=== PATIENT | female | born 1955 | race Caucasian/White ===

== ENCOUNTER → 2016-07-11 | Outpatient (CLI) | payer MEDICARE, OTHER | END | disposition home or self-care (01) | LOC: XYW 10:47 | PROVIDERS: ATTEND Internal Medicine Cardiovascular Disease | DX: I34.2 Nonrheumatic mitral (valve) stenosis (principal); I35.1 Nonrheumatic aortic (valve) insufficiency | CPT/HCPCS: 93306 ==

== ENCOUNTER → 2017-04-18 | Outpatient (CLI) | payer MEDICARE, OTHER | END | disposition home or self-care (01) | LOC: LAB 09:25 | PROVIDERS: ATTEND Internal Medicine | DX: Z01.812 Encounter for preprocedural laboratory examination (principal) | CPT/HCPCS: 36415; 84132 ==

== ENCOUNTER → 2019-03-06 | Outpatient (CLI) | payer MEDICARE, OTHER ==
[2019-03-06 10:37] LABS: Basophils # (auto) 0 uL; Basophils % (auto) 1.1 % (0.0-2.0); Eosinophils # (auto) 0.1 uL; Eosinophils % (auto) 4.4 % (0.0-7.0); Hematocrit 40.3 % (36.0-46.0); Hemoglobin 13.4 g/dL (12.2-16.2); Lymphocytes # (auto) 1.3 uL; Lymphocytes % (auto) 42.2 % (10.0-50.0); Mean Corpuscular Hemoglobin 32.2 pg (28.0-32.0); Mean Corpuscular Hgb Conc. 33.4 g/dL (32.0-36.0); Mean Corpuscular Volume 96.5 fL (80.0-100.0); Monocytes # (auto) 0.3 uL; Monocytes % (auto) 9.4 % (0.0-12.0); Neutrophils # (auto) 1.3 uL; Neutrophils % (auto) 42.9 % (37.0-80.0); Nucleated Red Blood Cells % 0.1 %; Platelet Count (auto) 208 10^3/uL (140-450); Red Blood Cells 4.17 10^6/uL (4.0-5.20); Red Cell Distribution Width 12.8 % (11.8-14.3); White Blood Cell 3.1 10^3/uL (4.4-10.8)
[2019-03-06 10:44] LABS: Urine Bacteria FEW /hpf (None Seen); Urine Blood Negative /uL (Negative); Urine Mucus FEW (None Seen); Urine Specific Gravity 1.024 (1.001-1.035); Urine WBC 869 /hpf (0 - 5); Urine WBC Clumps PRESENT /hpf (None Seen)
[2019-03-06 11:28] LABS: Albumin 3.6 g/dL (3.4-5.0); Potassium 4.7 mmol/L (3.5-5.1)
[2019-03-06 11:42] LABS: BUN/Creatinine Ratio 18.7
[2019-03-06 11:43] LABS: Bilirubin, Total 0.4 mg/dL (0.2-1.0); Calcium 8.4 mg/dL (8.5-10.1); Total Protein 7.1 g/dL (6.4-8.2)
== END | disposition home or self-care (01) ==
LOC: LAB 09:31
PROVIDERS: ATTEND Internal Medicine
DX: K21.9 Gastro-esophageal reflux disease without esophagitis (principal); G35 Multiple sclerosis; R79.89 Other specified abnormal findings of blood chemistry; Z86.2 Personal history of diseases of the blood and blood-forming organs and certain disorders involving the immune mechanism
CPT/HCPCS: 36415; 80053; 80061; 81001; 84439; 84443; 85025; 85652

== ENCOUNTER → 2019-04-18 | Outpatient (CLI) | payer MEDICARE, OTHER ==
[2019-04-18 10:04] LABS: Basophils # (auto) 0 uL; Basophils % (auto) 0.8 % (0.0-2.0); Eosinophils # (auto) 0.1 uL; Eosinophils % (auto) 2.2 % (0.0-7.0); Hematocrit 40.8 % (36.0-46.0); Hemoglobin 13.9 g/dL (12.2-16.2); Lymphocytes # (auto) 1.1 uL; Lymphocytes % (auto) 30.9 % (10.0-50.0); Mean Corpuscular Hemoglobin 32.2 pg (28.0-32.0); Mean Corpuscular Hgb Conc. 33.9 g/dL (32.0-36.0); Mean Corpuscular Volume 94.9 fL (80.0-100.0); Monocytes # (auto) 0.2 uL; Monocytes % (auto) 5.6 % (0.0-12.0); Neutrophils # (auto) 2.2 uL; Neutrophils % (auto) 60.5 % (37.0-80.0); Nucleated Red Blood Cells % 0.1 %; Platelet Count (auto) 217 10^3/uL (140-450); Red Cell Distribution Width 12.4 % (11.8-14.3); White Blood Cell 3.7 10^3/uL (4.4-10.8)
[2019-04-18 10:06] LABS: Urine Bacteria FEW /hpf (None Seen); Urine Blood Negative /uL (Negative); Urine Mucus FEW (None Seen); Urine Specific Gravity 1.015 (1.001-1.035); Urine WBC 10 /hpf (0 - 5)
[2019-04-18 10:16] LABS: INR 0.99 (0.9-1.15)
[2019-04-18 10:26] LABS: Albumin 3.8 g/dL (3.4-5.0); Calcium 8.5 mg/dL (8.5-10.1)
[2019-04-18 10:30] LABS: Bilirubin, Total 0.4 mg/dL (0.2-1.0); Total Protein 7.4 g/dL (6.4-8.2)
[2019-04-18 10:40] LABS: Follicle Stimulating Hormone 10.93 IU/L (SEE BELOW); Free T3 3.85 pg/mL (2.3-4.2)
== END | disposition home or self-care (01) ==
LOC: LAB 09:13
DX: Z01.818 Encounter for other preprocedural examination (principal); Z01.812 Encounter for preprocedural laboratory examination; D53.9 Nutritional anemia, unspecified; K21.9 Gastro-esophageal reflux disease without esophagitis; Z79.899 Other long term (current) drug therapy
CPT/HCPCS: 36415; 80053; 81001; 82306; 82607; 82670; 83001; 84403; 84436; 84443; 84481; 85025; 85610; 86376; 87086

== ENCOUNTER → 2019-11-18 | Outpatient (CLI) | payer MEDICARE, OTHER ==
[2019-11-18 11:04] LABS: Basophils # (auto) 0 10 ^3/uL (0-0.2); Eosinophils # (auto) 0.3 10 ^3/uL (0-0.8); Eosinophils % (auto) 5.3 % (0.0-7.0); Hematocrit 42.3 % (36.0-46.0); Hemoglobin 13.9 g/dL (12.2-16.2); Lymphocytes # (auto) 1.9 10 ^3/uL (0.4-5.4); Mean Corpuscular Hemoglobin 31.2 pg (28.0-32.0); Mean Corpuscular Hgb Conc. 32.8 g/dL (32.0-36.0); Mean Corpuscular Volume 95.1 fL (80.0-100.0); Monocytes # (auto) 0.4 10 ^3/uL (0-1.3); Monocytes % (auto) 9.4 % (0.0-12.0); Neutrophils # (auto) 2.1 10 ^3/uL (1.6-8.6); Neutrophils % (auto) 44.3 % (37.0-80.0); Nucleated Red Blood Cells % 0.1 %; Platelet Count (auto) 256 10^3/uL (140-450); Red Blood Cells 4.45 10^6/uL (4.0-5.20); Red Cell Distribution Width 13.4 % (11.8-14.3); White Blood Cell 4.8 10^3/uL (4.4-10.8)
[2019-11-18 11:47] LABS: Potassium 4.8 mmol/L (3.5-5.1)
[2019-11-18 11:58] LABS: Albumin 3.7 g/dL (3.4-5.0); BUN/Creatinine Ratio 16.4; Bilirubin, Total 0.3 mg/dL (0.2-1.0); Calcium 8.7 mg/dL (8.5-10.1); Magnesium 2.6 mg/dL (1.6-2.6); Total Protein 7.4 g/dL (6.4-8.2)
== END | disposition home or self-care (01) ==
LOC: LAB 10:47
PROVIDERS: ATTEND Internal Medicine
DX: D72.819 Decreased white blood cell count, unspecified (principal); R25.1 Tremor, unspecified; R53.83 Other fatigue
CPT/HCPCS: 36415; 80053; 82550; 83735; 84439; 84443; 85025

== ENCOUNTER → 2022-04-06 | Outpatient (CLI) | payer MEDICARE, OTHER ==
[2022-04-06 11:15] LABS: Basophils # (auto) 0 10 ^3/uL (0-0.2); Basophils % (auto) 1.6 % (0.0-2.0); Eosinophils # (auto) 0.1 10 ^3/uL (0-0.8); Eosinophils % (auto) 5.3 % (0.0-7.0); Hematocrit 36.3 % (36.0-46.0); Lymphocytes # (auto) 1.1 10 ^3/uL (0.4-5.4); Lymphocytes % (auto) 46.8 % (10.0-50.0); Mean Corpuscular Hemoglobin 30.7 pg (28.0-32.0); Mean Corpuscular Volume 92.9 fL (80.0-100.0); Monocytes # (auto) 0.2 10 ^3/uL (0-1.3); Monocytes % (auto) 8.7 % (0.0-12.0); Neutrophils # (auto) 0.9 10 ^3/uL (1.6-8.6); Neutrophils % (auto) 37.6 % (37.0-80.0); Nucleated Red Blood Cells % 0.1 %; Red Cell Distribution Width 12.9 % (11.8-14.3); White Blood Cell 2.4 10^3/uL (4.4-10.8)
[2022-04-06 12:09] LABS: Albumin 3.6 g/dL (3.4-5.0); BUN/Creatinine Ratio 24.4; Bilirubin, Total 0.3 mg/dL (0.2-1.0); Calcium 8.7 mg/dL (8.5-10.1); Total Protein 6.9 g/dL (6.4-8.2)
[2022-04-06 12:46] LABS: Urine Bacteria FEW /hpf (None Seen); Urine WBC 4 /hpf (0 - 5)
[2022-04-06 12:52] LABS: Urine Blood Normal /uL (Negative)
[2022-04-06 13:59] LABS: Potassium 5.6 mmol/L (3.5-5.1)
== END | disposition home or self-care (01) ==
LOC: LAB 10:52
PROVIDERS: ATTEND Internal Medicine
DX: K21.9 Gastro-esophageal reflux disease without esophagitis (principal); G35 Multiple sclerosis; N18.9 Chronic kidney disease, unspecified; R63.4 Abnormal weight loss
CPT/HCPCS: 36415; 80053; 80061; 81001; 84439; 84443; 85025; 85652

== ENCOUNTER → 2022-04-07 | Outpatient (CLI) | payer MEDICARE, OTHER | END | disposition home or self-care (01) | LOC: LAB 08:15 | PROVIDERS: ATTEND Internal Medicine | DX: G35 Multiple sclerosis (principal); E78.5 Hyperlipidemia, unspecified | CPT/HCPCS: 36415; 84132 ==

== ENCOUNTER 2023-01-18 08:45 | Inpatient (IN) | payer MEDICARE, OTHER ==
[2023-01-15 10:56] LABS: Basophils # (auto) 0 10 ^3/uL (0-0.2); Basophils % (auto) 0.6 % (0.0-2.0); Eosinophils # (auto) 0.1 10 ^3/uL (0-0.8); Eosinophils % (auto) 3.1 % (0.0-7.0); Hematocrit 37.8 % (36.0-46.0); Hemoglobin 12.5 g/dL (12.2-16.2); Lymphocytes # (auto) 1.3 10 ^3/uL (0.4-5.4); Lymphocytes % (auto) 33.7 % (10.0-50.0); Mean Corpuscular Hemoglobin 30.4 pg (28.0-32.0); Mean Corpuscular Volume 92.3 fL (80.0-100.0); Monocytes # (auto) 0.3 10 ^3/uL (0-1.3); Monocytes % (auto) 6.8 % (0.0-12.0); Neutrophils # (auto) 2.1 10 ^3/uL (1.6-8.6); Neutrophils % (auto) 55.8 % (37.0-80.0); Nucleated Red Blood Cells % 0.1 %; Red Cell Distribution Width 12.8 % (11.8-14.3); White Blood Cell 3.8 10^3/uL (4.4-10.8)
[2023-01-15 11:15] LABS: INR 0.99 (0.9-1.15); Partial Thromboplastin Time 25.8 SEC (24.5-34.5); Prothrombin Time 10.4 sec (9.3-11.8)
[2023-01-15 11:55] LABS: Urine Bacteria FEW /hpf (None Seen); Urine Blood Negative /uL (Negative); Urine Clarity Clear (Clear); Urine Color Yellow (Yellow); Urine Mucus FEW (None Seen); Urine Protein, UAD Negative (Negative); Urine Specific Gravity 1.027 (1.001-1.035); Urine Urobilinogen Normal (Negative); Urine WBC 4 /hpf (0 - 5)
[2023-01-15 12:24] LABS: Albumin 3.6 g/dL (3.4-5.0); Calcium 8.6 mg/dL (8.5-10.1); Potassium 4.2 mmol/L (3.5-5.1)
[2023-01-15 12:26] LABS: BUN/Creatinine Ratio 18.3 (10.0-20.0)
[2023-01-15 12:29] LABS: Bilirubin, Total 0.3 mg/dL (0.2-1.0); Total Protein 6.9 g/dL (6.4-8.2)
[~2023-01-18] VITALS: Ht 172.7 cm; Wt 63.2 kg
[~2023-01-18 08:45] MED LIST: AMIT50TA10 PO; BACL20TA PO; BUSP10TA31 PO; MULT-1018 OR; ROPI0.5T4 PO
[2023-01-18] MEDS ORDERED: SODIUM CHLORIDE LOCK 30 ML ONE (09:02)
[2023-01-18] MEDS ORDERED: GLYCOPYRROLATE 0.2 MG/ML 1ML VIAL ONE (09:02)
[2023-01-18] MEDS ORDERED: HYDROmorphone HCL 2 MG/ML VL/or syr ONE (09:02)
[2023-01-18] MEDS ORDERED: DexAMETHasone SOD PHOS 10MG/1ML VIAL INJ ONE (09:02)
[2023-01-18] MEDS ORDERED: ONDANSETRON HCL 4 MG/2 ML VIAL ONE (09:02)
[2023-01-18] MEDS ORDERED: PROPOFOL 10 MG/ML 20 ML IV ONE ×2 (09:02→14:54)
[2023-01-18] MEDS ORDERED: MIDAZOLAM HCL 2MG/2ML 2ml VIAL (1mg/ml) ONE (09:02)
[2023-01-18] MEDS ORDERED: NEOSTIGMINE 1 MG/ML INJ (10mg/10ML VIAL) ONE (09:02)
[2023-01-18] MEDS ORDERED: ceFAZolin 1GM/50ML 100 ML IV ONE (09:42)
[2023-01-18] MEDS ORDERED: ROCURONIUM 10MG/ML 10ML VIAL IV ONE (12:54)
[2023-01-18] MEDS ORDERED: SUCCINYLCHOLINE CHLORIDE 20 MG/ML 10ML VIAL IV ONE (12:54)
[2023-01-18] MEDS ORDERED: PHENYLEPHRINE HCL 10 MG/ML VL IV ONE (12:54)
[2023-01-18] MEDS ORDERED: MORPHINE SULFATE INJ 2 MG/ml SYRG IV PRN ×2 (13:00→17:15)
[2023-01-18] MEDS ORDERED: HYDROmorphone HCL 2 MG/ML VL/or syr IV PRN ×2 (13:00)
[2023-01-18] MEDS ORDERED: METOCLOPRAMIDE HCL 5MG/ml INJ 2ml VIAL IV PRN (13:00)
[2023-01-18] MEDS ORDERED: GENTAMICIN SULFATE 2 ML ONE (13:01)
[2023-01-18] MEDS ORDERED: fentaNYL CITRATE 100 MCG/2 ML VL ONE (13:02)
[2023-01-18] MEDS ORDERED: fentaNYL CITRATE 5 ML ONE (13:02)
[2023-01-18] MEDS ORDERED: LIDOCAINE 2% JELLY 11ml (GLYDO) ONE (13:15)
[2023-01-18] MEDS ORDERED: HYDROCORTISONE SOD SUCC 100 MG/2ML INJ VIAL ONE (15:12)
[2023-01-18] MEDS ORDERED: SUGAMMADEX 200mg/2ml Vial (100MG/ML) IV ONE (16:42)
[2023-01-18] MEDS ORDERED: oxyCODONE HCL 5MG TAB PO PRN (17:15)
[2023-01-18] MEDS ORDERED: hydrALAZINE HCL 20 MG/ML VL IV PRN (17:15)
[2023-01-18] MEDS ORDERED: NITROGLYCERIN 0.4 MG SL TAB SL PRN (17:15)
[2023-01-18] MEDS ORDERED: ONDANSETRON HCL 4 MG/2 ML VIAL IV PRN (17:15)
[2023-01-18] MEDS ORDERED: NALOXONE HCL 0.4 MG/ML VIAL IV PRN (17:15)
[2023-01-18] MEDS ORDERED: LABETALOL HCL 5 MG/ML 4ML SYRINGE IV PRN (17:15)
[2023-01-18] MEDS ORDERED: FLUMAZENIL 0.1 MG/ML INJ 10ML MDV IV PRN (17:15)
[2023-01-18] MEDS ORDERED: DOCUSATE SOD 100 MG CAP PO PRN (17:15)
[2023-01-18] MEDS ORDERED: ePHEDrine SULFATE 50 MG/ML AMP IV PRN (17:15)
[2023-01-18] MEDS ORDERED: fentaNYL CITRATE 100 MCG/2 ML VL IV PRN (17:15)
[2023-01-18] MEDS ORDERED: MILK OF MAGNESIA 30ML SUSP PO PRN (17:15)
[2023-01-18] MEDS ORDERED: CYCLOBENZAPRINE HCL 10 MG TAB PO ONE (17:20)
[2023-01-18] MEDS: HYDROmorphone HCL 2 MG/ML VL/or syr IV PRN ×2 (17:20→17:31)
[2023-01-18] MEDS: HYDROcodone-ACET 10/325MG TAB PO PRN (18:51)
[2023-01-18] MEDS: ceFAZolin 1GM/50ML 50 ML IV SCH (18:52)
[2023-01-18] MEDS: D5W/SOD CHLO 0.9% 1,000 ML IV SCH (18:59)
[2023-01-18] MEDS ORDERED: VANCOMYCIN 1GM/250ML 250 ML IV ONE (19:00)
[2023-01-18 19:05] VITALS: BP 145/63; PULSE 85; RESP 16; TEMP 98.7; O2SAT 99
[2023-01-18 20:00] VITALS: PULSE 80
[2023-01-18] MEDS: VANCOMYCIN 750mg/250ml 250 ML IV SCH (20:00)
[2023-01-18 20:02] LABS: Basophils # (auto) 0 10 ^3/uL (0-0.2); Basophils % (auto) 0.1 % (0.0-2.0); Eosinophils # (auto) 0 10 ^3/uL (0-0.8); Eosinophils % (auto) 0.1 % (0.0-7.0); Hematocrit 32.1 % (36.0-46.0); Hemoglobin 10.7 g/dL (12.2-16.2); Lymphocytes # (auto) 0.5 10 ^3/uL (0.4-5.4); Mean Corpuscular Hemoglobin 30.6 pg (28.0-32.0); Mean Corpuscular Hgb Conc. 33.2 g/dL (32.0-36.0); Mean Corpuscular Volume 92.4 fL (80.0-100.0); Monocytes # (auto) 0.1 10 ^3/uL (0-1.3); Monocytes % (auto) 1.9 % (0.0-12.0); Neutrophils % (auto) 90.9 % (37.0-80.0); Red Blood Cells 3.48 10^6/uL (4.0-5.20); Red Cell Distribution Width 12.8 % (11.8-14.3); White Blood Cell 7.7 10^3/uL (4.4-10.8)
[2023-01-18 22:00] VITALS: BP 135/57; PULSE 18; RESP 18; TEMP 80; O2SAT 99
[2023-01-18] MEDS: VANCOMYCIN PER PHARMACY 1,000 MG IV SCH (22:00)
[2023-01-18] MEDS: DOCUSATE SOD 100 MG CAP PO SCH (22:10)
[2023-01-18] MEDS: CYCLOBENZAPRINE HCL 10 MG TAB PO SCH (22:11)
[2023-01-18] MEDS: ONDANSETRON HCL 4 MG/2 ML VIAL IV PRN (22:12)
[2023-01-18] MEDS: MORPHINE SULFATE INJ 2 MG/ml SYRG IV PRN (22:13)
[2023-01-19] VITALS (7 sets, daily range): BP systolic 114–161; BP diastolic 51–66; PULSE 82–96; RESP 16–18; TEMP 98–98.7; O2SAT 94–97
[2023-01-19] MEDS: ceFAZolin 1GM/50ML 50 ML IV SCH (02:29)
[2023-01-19] MEDS: ONDANSETRON HCL 4 MG/2 ML VIAL IV PRN ×2 (02:43→15:33)
[2023-01-19] MEDS: MORPHINE SULFATE INJ 2 MG/ml SYRG IV PRN ×4 (02:44→14:27)
[2023-01-19 06:11] LABS: Calcium 8.1 mg/dL (8.5-10.1); Potassium 4.3 mmol/L (3.5-5.1)
[2023-01-19 06:14] LABS: BUN/Creatinine Ratio 12.9 (10.0-20.0)
[2023-01-19] MEDS: D5W/SOD CHLO 0.9% 1,000 ML IV SCH ×3 (06:42→23:23)
[2023-01-19] MEDS: CYCLOBENZAPRINE HCL 10 MG TAB PO SCH ×3 (06:42→21:47)
[2023-01-19] MEDS: VANCOMYCIN 750mg/250ml 250 ML IV SCH ×2 (08:31→20:32)
[2023-01-19] MEDS: ACETAMINOPHEN 325 MG TAB PO PRN ×2 (09:25→17:17)
[2023-01-19] MEDS: VANCOMYCIN PER PHARMACY 1,000 MG IV SCH ×2 (10:00→21:50)
[2023-01-19 11:35] LABS: Basophils # (auto) 0 10 ^3/uL (0-0.2); Basophils % (auto) 0.5 % (0.0-2.0); Eosinophils # (auto) 0 10 ^3/uL (0-0.8); Eosinophils % (auto) 0.2 % (0.0-7.0); Hematocrit 30.4 % (36.0-46.0); Hemoglobin 9.9 g/dL (12.2-16.2); Lymphocytes % (auto) 11.9 % (10.0-50.0); Mean Corpuscular Hemoglobin 31.1 pg (28.0-32.0); Mean Corpuscular Hgb Conc. 32.5 g/dL (32.0-36.0); Mean Corpuscular Volume 95.8 fL (80.0-100.0); Monocytes # (auto) 0.6 10 ^3/uL (0-1.3); Monocytes % (auto) 6.5 % (0.0-12.0); Neutrophils % (auto) 80.9 % (37.0-80.0); Nucleated Red Blood Cells % 0.1 %; Red Blood Cells 3.17 10^6/uL (4.0-5.20); Red Cell Distribution Width 13.1 % (11.8-14.3); White Blood Cell 8.6 10^3/uL (4.4-10.8)
[2023-01-19] MEDS: DOCUSATE SOD 100 MG CAP PO SCH ×2 (11:39→21:43)
[2023-01-19] MEDS: HYDROcodone-ACET 10/325MG TAB PO PRN (14:25)
[2023-01-19] MEDS: ALPRAZolam 0.5 MG TAB PO PRN (18:57)
[2023-01-19 19:31] LABS: Hematocrit 29.3 % (36.0-46.0); Hemoglobin 9.7 g/dL (12.2-16.2)
[2023-01-19] MEDS ORDERED: AMITRIPTYLINE HCL 25 MG TAB PO SCH (22:00)
[2023-01-20 05:00] VITALS: BP 139/55; PULSE 76; RESP 16; TEMP 97.7; O2SAT 97
[2023-01-20] MEDS: CYCLOBENZAPRINE HCL 10 MG TAB PO SCH (05:16)
[2023-01-20] MEDS: HYDROcodone-ACET 10/325MG TAB PO PRN ×2 (05:40→10:20)
[2023-01-20 08:00] VITALS: PULSE 81; O2SAT 96
[2023-01-20 08:38] VITALS: BP 141/56; PULSE 90; RESP 18; TEMP 98.7; O2SAT 93
[2023-01-20] MEDS: DOCUSATE SOD 100 MG CAP PO SCH (09:53)
[2023-01-20] MEDS: ALPRAZolam 0.5 MG TAB PO PRN (09:56)
[2023-01-20] MEDS: VANCOMYCIN PER PHARMACY 1,000 MG IV SCH (10:00)
[2023-01-20] MEDS: VANCOMYCIN 750mg/250ml 250 ML IV SCH (10:20)
[2023-01-20] MEDS ORDERED: HYDR-4798 PO (11:00)
[2023-01-20] MEDS ORDERED: CYCL-837 PO (11:00)
[2023-01-20] MEDS: ACETAMINOPHEN 325 MG TAB PO PRN (11:51)
[2023-01-20 12:03] VITALS: BP 141/56; PULSE 90; RESP 16; TEMP 98.7; O2SAT 93
[2023-01-20 13:20] VITALS: BP 151/98; PULSE 81; RESP 20; TEMP 98.7; O2SAT 94
== END 2023-01-20 12:55 | disposition home health service (06) | DRG 454 ==
LOC: SUR 08:45 → TELE 17:13 → TELE-CENTR 18:42
PROVIDERS: ADMIT Orthopaedic Surgery; ATTEND Internal Medicine
PROC: 4A11X4G Monitoring of Peripheral Nervous Electrical Activity, Intraoperative, External Approach (ICD-10-PCS; 2023-01-18)
PROC: 0SG00AJ Fusion of Lumbar Vertebral Joint with Interbody Fusion Device, Posterior Approach, Anterior Column, Open Approach (ICD-10-PCS; principal; 2023-01-19)
PROC: 0SG0071 Fusion of Lumbar Vertebral Joint with Autologous Tissue Substitute, Posterior Approach, Posterior Column, Open Approach (ICD-10-PCS; 2023-01-19)
PROC: 01NB0ZZ Release Lumbar Nerve, Open Approach (ICD-10-PCS; 2023-01-19)
PROC: 00NY0ZZ Release Lumbar Spinal Cord, Open Approach (ICD-10-PCS; 2023-01-19)
PROC: 0SP00AZ Removal of Interbody Fusion Device from Lumbar Vertebral Joint, Open Approach (ICD-10-PCS; 2023-01-19)
DX: M48.061 Spinal stenosis, lumbar region without neurogenic claudication (principal); R71.0 Precipitous drop in hematocrit; G35 Multiple sclerosis; M43.16 Spondylolisthesis, lumbar region
CPT/HCPCS: 36415; 72100; 76000; 80048; 80053; 80202; 81001; 85014; 85018; 85025; 85610; 85730; 86850; 86900; 86901; 87086; 97110; 97116; 97163; 97530; G0378; J0330; J0690; J1100; J2250; J2405; J2704; J7042

== ENCOUNTER → 2023-03-29 | Outpatient (CLI) | payer MEDICARE, OTHER ==
[~2023-03-29] MED LIST changes: +ASPI81CH43 GT; +ATOR20TA50 PO; +BACL10TA; +CYCL-837 PO; +ESOM2.5G OR; +GABA-1308; +GLAT20KI; +HYDR-4798 PO; +LORA-516 PO; +[UNRECOGNIZED DRUG - CODE]; +[UNRECOGNIZED DRUG - CODE] SL; +[UNRECOGNIZED DRUG - OTHER]
[2023-03-29 11:56] LABS: Basophils # (auto) 0 10 ^3/uL (0-0.2); Basophils % (auto) 0.7 % (0.0-2.0); Eosinophils # (auto) 0.1 10 ^3/uL (0-0.8); Eosinophils % (auto) 2.4 % (0.0-7.0); Hemoglobin 12.5 g/dL (12.2-16.2); Lymphocytes # (auto) 1.7 10 ^3/uL (0.4-5.4); Lymphocytes % (auto) 41.3 % (10.0-50.0); Mean Corpuscular Hemoglobin 30.1 pg (28.0-32.0); Mean Corpuscular Hgb Conc. 32.9 g/dL (32.0-36.0); Mean Corpuscular Volume 91.4 fL (80.0-100.0); Monocytes # (auto) 0.3 10 ^3/uL (0-1.3); Monocytes % (auto) 7.5 % (0.0-12.0); Neutrophils # (auto) 1.9 10 ^3/uL (1.6-8.6); Neutrophils % (auto) 48.1 % (37.0-80.0); Red Blood Cells 4.16 10^6/uL (4.0-5.20); Red Cell Distribution Width 13.9 % (11.8-14.3)
[2023-03-29 11:59] LABS: Urine Bacteria NONE SEEN /hpf (None Seen); Urine Blood Negative /uL (Negative); Urine Clarity Clear (Clear); Urine Color Yellow (Yellow); Urine Mucus FEW (None Seen); Urine Protein, UAD TRACE (Negative); Urine Specific Gravity 1.027 (1.001-1.035); Urine Urobilinogen Normal (Negative); Urine WBC 2 /hpf (0 - 5); Urine pH 5.5 (5.0-8.0)
[2023-03-29 12:23] LABS: Erythrocyte Sedimentation Rate 13 mm/hr (0-20)
[2023-03-29 13:03] LABS: Alanine Aminotransferase 16 U/L (7-40); Albumin 4.5 g/dL (3.2-4.8); Alkaline Phosphatase 73 U/L (46-116); Anion Gap 6 (5-15); Aspartate Aminotransferase 15 U/L (13-40); Blood Urea Nitrogen 11 mg/dL (9-23); Carbon Dioxide 31 mmol/L (20-30); Chloride 103 mmol/L (98-107); Glucose 101 mg/dL (74-106); Potassium 3.8 mmol/L (3.5-5.1); Sodium 140 mmol/L (136-145)
[2023-03-29 13:04] LABS: Bilirubin, Total 0.3 mg/dL (0.2-1.0); Total Protein 7.1 g/dL (5.7-8.2)
== END | disposition home or self-care (01) ==
LOC: LAB 11:32
PROVIDERS: ATTEND Internal Medicine
DX: K21.9 Gastro-esophageal reflux disease without esophagitis (principal); G35 Multiple sclerosis; D64.9 Anemia, unspecified
CPT/HCPCS: 36415; 80053; 81001; 83540; 84439; 84443; 85025; 85652

== ENCOUNTER → 2023-04-03 | Outpatient (CLI) | payer MEDICARE, OTHER ==
[2023-04-03 10:42] LABS: Triglycerides 71 mg/dL (< 150)
[2023-04-03 10:43] LABS: LDL Cholesterol 147 mg/dL (< 100)
[2023-04-03 10:44] LABS: Cholesterol 230 mg/dL (< 200); HDL Cholesterol 72 mg/dL (40-59)
== END | disposition home or self-care (01) ==
LOC: LAB 09:29
PROVIDERS: ATTEND Internal Medicine
DX: K21.9 Gastro-esophageal reflux disease without esophagitis (principal); G35 Multiple sclerosis; Z79.899 Other long term (current) drug therapy
CPT/HCPCS: 36415; 80061

== ENCOUNTER → 2023-08-23 | Outpatient (CLI) | payer MEDICARE, OTHER ==
[2023-08-23 11:13] LABS: Basophils # (auto) 0 10 ^3/uL (0-0.2); Basophils % (auto) 0.4 % (0.0-2.0); Eosinophils # (auto) 0.1 10 ^3/uL (0-0.8); Eosinophils % (auto) 2.1 % (0.0-7.0); Hematocrit 37.6 % (36.0-46.0); Hemoglobin 12.2 g/dL (12.2-16.2); Lymphocytes # (auto) 1.6 10 ^3/uL (0.4-5.4); Lymphocytes % (auto) 24.6 % (10.0-50.0); Mean Corpuscular Hemoglobin 30.1 pg (28.0-32.0); Mean Corpuscular Hgb Conc. 32.5 g/dL (32.0-36.0); Mean Corpuscular Volume 92.6 fL (80.0-100.0); Monocytes # (auto) 0.4 10 ^3/uL (0-1.3); Monocytes % (auto) 6.4 % (0.0-12.0); Neutrophils # (auto) 4.3 10 ^3/uL (1.6-8.6); Neutrophils % (auto) 66.5 % (37.0-80.0); Red Blood Cells 4.06 10^6/uL (4.0-5.20); Red Cell Distribution Width 13.7 % (11.8-14.3); White Blood Cell 6.5 10^3/uL (4.4-10.8)
== END | disposition home or self-care (01) ==
LOC: LAB 11:00
PROVIDERS: ATTEND Internal Medicine
DX: D72.818 Other decreased white blood cell count (principal); E78.5 Hyperlipidemia, unspecified
CPT/HCPCS: 36415; 84132; 85025

== ENCOUNTER 2025-01-22 11:18 | Outpatient (CLI) | payer MEDICARE, OTHER ==
[~2025-01-22 11:18] MED LIST changes: -AMIT50TA10 PO; +AMIT50TA12 PO; +ROPI0.5T26 PO; -ROPI0.5T4 PO
[2025-01-22 11:42] LABS: Hematocrit 39.8 % (36.0-46.0); Hemoglobin 13.2 g/dL (12.2-16.2); Mean Corpuscular Hemoglobin 30.5 pg (28.0-32.0); Mean Corpuscular Volume 92.1 fL (80.0-100.0); Nucleated Red Blood Cells % 0.1 %
[2025-01-22 12:14] LABS: Alanine Aminotransferase 17 U/L (7-40); Albumin 4.3 g/dL (3.2-4.8); Alkaline Phosphatase 63 U/L (46-116); Anion Gap 7 (5-15); BUN/Creatinine Ratio 12.9 (10.0-20.0); Bilirubin, Total 0.5 mg/dL (0.2-1.0); Blood Urea Nitrogen 12 mg/dL (9-23); Calcium 9.0 mg/dL (8.7-10.4); Carbon Dioxide 30 mmol/L (20-31); Chloride 107 mmol/L (98-107); Glucose 93 mg/dL (74-106); Potassium 4.8 mmol/L (3.5-5.1); Sodium 144 mmol/L (136-145); Total Protein 6.9 g/dL (5.7-8.2)
== END 2025-01-22 17:00 | disposition home or self-care (01) ==
LOC: LAB 11:18
PROVIDERS: ATTEND Internal Medicine
DX: K21.9 Gastro-esophageal reflux disease without esophagitis (principal); R10.13 Epigastric pain; E78.5 Hyperlipidemia, unspecified
CPT/HCPCS: 36415; 80053; 84439; 85025